=== PATIENT | male | born 1970 | race Caucasian/White ===

== ENCOUNTER 2019-11-26 10:08 | Emergency (ER) | payer BC ==
[2019-11-26] MEDS ORDERED: ONDANSETRON HCL INJ/PF 4 MG/2 ML SDV IV ONE (12:32)
--- NOTE | 2019-11-26 12:36 | ER Document Report ---
ED Medical Screen (RME) - General Chief Complaint: Dizziness Stated Complaint: NAUSEA,VOMITING/BLOOD SUGAR ISSUE Time Seen by Provider: 11/26/19 12:19 - HPI Notes: 11/26/19 12:32 49-year-old male with a history of 6 pack a day for over 30 years and smoking a pack and a half of cigarettes for over 30 years presents to the emergency room for evaluation of dizzy spells and vomiting that has been occurring for the last year however has become much worse over the last few days. Patient reports that he has had 4 episodes of vomiting today, abdominal pain around his umbilicus and shaking along with having dizzy spells. Patient states that he was seen a few months ago by his primary care provider for these issues, was placed on a PPI to help with his acid reflux, no endoscopy was done. Patient states that he has been getting progressively worse. Recently traveled from [place] for vacation at that time he was routinely checking his blood sugars because of his dizziness, vomiting, having the shakes, sluggish, his friend advised him to start checking his blood sugars. Reports that his highs were 139 his levels were 70s. Patient states when he started having the dizziness and the vomiting cold sweats sluggishness yesterday, he had a large breakfast which she then checked his blood sugar and it was only in the 80s. Patient states he has not had any alcohol in the last 5 years due to his issue with drinking. Patient reports he has had intermittent chest pain over the last couple of months as well as having some shortness of breath, chest pain is now brought him to the emergency room but his dizziness, sluggishness, abdominal pain, vomiting cold sweats and overall feeling of being ill as well prior to the emergency room today I have greeted and performed a rapid initial assessment of this patient. A c omprehensive ED assessment and evaluation of the patient, analysis of test results and completion of the medical decision making process will be conducted by additional ED providers. PHYSICAL EXAMINATION: GENERAL: Acutely ill, well-nourished and in no acute distress. CV: s1, s2 regular LUNGS: Diminished breath sounds in upper lobes Musculoskeletal: Normal range of motion. Bilateral hands noted clubbing Abdomen: Palpated tenderness around umbilicus, no CVA tenderness appreciated NEUROLOGICAL: Normal speech, normal gait. SKIN: Warm, Dry, normal turgor, no rashes or lesions noted. - Related Data Allergies/Adverse Reactions: Penicillins Allergy (Verified 11/26/19 12:18) Past Medical History - Social History Frequency of alcohol use: daily Drug Abuse: None GI Medical History: Reports: Hx Gastroesophageal Reflux Disease Skin Medical History: Denies Hx Eczema, Denies Hx MRSA - Immunizations Hx Diphtheria, Pertussis, Tetanus Vaccination: No Physical Exam - Vital signs Vitals: Temp Pulse Resp BP Pulse Ox 98.6 F 98 16 136/82 H 97 11/26/19 10:41 11/26/19 10:41 11/26/19 10:41 11/26/19 10:41 11/26/19 10:41 Course - Vital Signs Vital signs: Temp Pulse Resp BP Pulse Ox 98.6 F 98 16 136/82 H 97 11/26/19 12:19 11/26/19 10:41 11/26/19 10:41 11/26/19 10:41 11/26/19 10:41
--- NOTE | 2019-11-26 12:57 | RADIOLOGY REPORT (SQ) ---
EXAM DESCRIPTION: CHEST 2 VIEWS IMAGES COMPLETED DATE/TIME: 11/26/2019 12:48 pm REASON FOR STUDY: cough, dizziness, vomiting COMPARISON: None. EXAM PARAMETERS: NUMBER OF VIEWS: two views TECHNIQUE: Digital Frontal and Lateral radiographic views of the chest acquired. RADIATION DOSE: NA LIMITATIONS: none FINDINGS: LUNGS AND PLEURA: No opacities, masses or pneumothorax. No pleural effusion. MEDIASTINUM AND HILAR STRUCTURES: No masses or contour abnormalities. HEART AND VASCULAR STRUCTURES: Heart normal size. No evidence for failure. BONES: No acute findings. HARDWARE: None in the chest. OTHER: No other significant finding. IMPRESSION: NO ACUTE RADIOGRAPHIC FINDING IN THE CHEST. TECHNICAL DOCUMENTATION: JOB ID: [id number] 2010 [employer]- All Rights Reserved Reading location - IP/workstation name: [email or web address]
[2019-11-26] MEDS ORDERED: NORMAL SALINE 1000 ML 1,000 ML IV ONE (13:33)
[2019-11-26 14:24] LABS: ABSOLUTE BASOPHILS # (AUTO) 0.1 10^3/uL (0.0-0.2); ABSOLUTE EOSINOPHILS # (AUTO) 0.1 10^3/uL (0.0-0.6); ABSOLUTE LYMPHOCYTES (AUTO) 1.8 10^3/uL (0.5-4.7); ABSOLUTE MONOCYTES (AUTO) 0.6 10^3/uL (0.1-1.4); ABSOLUTE NEUT (AUTO) 4.5 10^3/uL (1.7-8.2); APPEARANCE,URINE CLEAR; BASOPHILS % (AUTO) 1.1 % (0-2); BILIRUBIN,URINE NEGATIVE (NEGATIVE); COLOR,URINE YELLOW; EOSINOPHILS % (AUTO) 1.2 % (0-6); GLUCOSE, URINE NEGATIVE (NEGATIVE); HEMATOCRIT 43.7 % (37.9-51.0); HEMOGLOBIN 15.4 g/dL (13.5-17.0); KETONES,URINE NEGATIVE (NEGATIVE); LEUKOCYTE ESTERASE,URINE NEGATIVE (NEGATIVE); LYMPHOCYTES % (AUTO) 25.1 % (13-45); MEAN CORPUSCULAR HEMOGLOBIN 33.4 pg (27.0-33.4); MEAN CORPUSCULAR HGB CONC 35.2 g/dL (32.0-36.0); MEAN CORPUSCULAR VOLUME 95 fl (80-97); MONOCYTES % (AUTO) 8.6 % (3-13); NITRITE,URINE NEGATIVE (NEGATIVE); PLATELET COUNT 202 10^3/uL (150-450); PROTEIN,URINE NEGATIVE (NEGATIVE); RED CELL DISTRIBUTION WIDTH 14.7 % (11.5-14.0); TOTAL CELLS COUNTED % (AUTO) 100 %; URINE SPECIFIC GRAVITY 1.013; UROBILINOGEN,URINE NEGATIVE mg/dL (<2.0)
[2019-11-26 14:42] LABS: ALBUMIN 4.9 g/dL (3.5-5.0); ALKALINE PHOSPHATASE 71 U/L (38-126); ANION GAP 10 (5-19); ASPARTATE AMINO TRANSFERASE 30 U/L (17-59); BILIRUBIN,DIRECT 0.3 mg/dL (0.0-0.4); BILIRUBIN,TOTAL 0.4 mg/dL (0.2-1.3); BLOOD UREA NITROGEN 10 mg/dL (7-20); CALCIUM 9.2 mg/dL (8.4-10.2); CARBON DIOXIDE 26 mmol/L (22-30); CHLORIDE 103 mmol/L (98-107); GLUCOSE 84 mg/dL (75-110); POTASSIUM 4.1 mmol/L (3.6-5.0); TOTAL PROTEIN 9.7 g/dL (6.3-8.2)
--- NOTE | 2019-11-26 15:46 | RADIOLOGY REPORT (SQ) ---
EXAM DESCRIPTION: CT ABD/PELVIS WITH IV ONLY IMAGES COMPLETED DATE/TIME: 11/26/2019 3:33 pm REASON FOR STUDY: Periumbilical pain, vomiting,dizzy, hxofetoh+30yr COMPARISON: None. TECHNIQUE: CT scan of the abdomen and pelvis performed using helical scanning technique with dynamic intravenous contrast injection. No oral contrast. Images reviewed with lung, soft tissue, and bone windows. Reconstructed coronal and sagittal MPR images reviewed. Delayed images for evaluation of the urinary system also acquired. All images stored on PACS. All CT scanners at this facility use dose modulation, iterative reconstruction, and/or weight based d osing when appropriate to reduce radiation dose to as low as reasonably achievable (ALARA). [facility]: Dose Right [facility]: CareDose [facility]: Dose Right [facility]: Teradose 4D [facility]: [employer] CONTRAST TYPE AND DOSE: contrast/concentration: Isovue 350.00 mmol/ml; Total Contrast Delivered: 100 .0 ml; Total Saline Delivered: 72.0 ml RENAL FUNCTION: BUN 10 creatinine 0.68. RADIATION DOSE: CT Rad equipment meets quality standard of care and radiation dose reduction techniq ues were employed. CTDIvol: 7.0 - 9.7 mGy. DLP: 939 mGy-cm.. LIMITATIONS: None. FINDINGS: LOWER CHEST: No significant findings. No nodules or infiltrates. LIVER: Normal size. No masses. No dilated ducts. SPLEEN: Normal size. No focal lesions. PANCREAS: No masses. No significant calcifications. No adjacent inflammation or peripancreatic fluid collections. Pancreatic duct not dilated. GALLBLADDER: No identified stones by CT criteria. No inflammatory changes to suggest cholecystitis. ADRENAL GLANDS: No significant masses or asymmetry. RIGHT KIDNEY AND URETER: No solid masses. No significant calcifications. No hydronephrosis or hyd roureter. LEFT KIDNEY AND URETER: Cortical cyst. No solid masses. No significant calcifications. No hydron ephrosis or hydroureter. AORTA AND VESSELS: No aneurysm. No dissection. Renal arteries, SMA, celiac without stenosis. RETROPERITONEUM: No retroperitoneal adenopathy, hemorrhage or masses. BOWEL AND PERITONEAL CAVITY: No masses or inflammatory changes. No free fluid or peritoneal masses. APPENDIX: Normal. PELVIS: No mass. No free fluid. Normal bladder. ABDOMINAL WALL: No masses. No hernias. BONES: No significant or acute findings. OTHER: No other significant finding. IMPRESSION: NO SIGNIFICANT OR ACUTE FINDING IN THE ABDOMEN OR PELVIS ON CT SCAN WITH IV CONTRAST. I NCIDENTAL CORTICAL CYST IN THE LEFT KIDNEY. TECHNICAL DOCUMENTATION: JOB ID: [id number] Quality ID # [id number]: Final reports with documentation of one or more dose reduction techniques (e.g., Au tomated exposure control, adjustment of the mA and/or kV according to patient size, use of iterative reconstruction technique) 2010 [employer]- All Rights Reserved Reading location - IP/workstation name: [email or web address]
[2019-11-26 16:04] VITALS: BP 135/79
--- NOTE | 2019-11-26 16:23 | ER Document Report ---
ED Dizziness/Weakness - General Chief Complaint: Dizziness Stated Complaint: NAUSEA,VOMITING/BLOOD SUGAR ISSUE Time Seen by Provider: 11/26/19 12:19 Primary Care Provider: NORM POSADAS PA-C [Primary Care Provider] - Follow up as needed Mode of Arrival: Ambulatory Information source: Patient - HPI Notes: Patient comes to be seen with an episode today where he became "clammy" and had some abdominal crampy pain. He states he also gets nauseous when he has episodes. He states he has had several these episodes over the last couple of months and feels that it may be his blood sugar. He states that he is taken his blood sugars at home and they range between 70 and 140. He also states that he drinks 6 beers per day and several shots of hard liquor per day. He also states that he occasionally smokes marijuana. He states that he feels the alcohol use may also be making him feel weak. He states that he has a generalized weakness and lack of energy over the last several months. He states that this lasts most of each day. Nothing makes it better or worse. However when he exerts himself he does feel even weaker. Patient states that the sensation is fairly constant radiates throughout his body. - Related Data Allergies/Adverse Reactions: Penicillins Allergy (Verified 11/26/19 12:18) Past Medical History - General Information source: Patient - Social History Smoking Status: Current Every Day Smoker Frequency of alcohol use: daily Drug Abuse: None Family History: Reviewed & Not Pertinent Patient has homicidal ideation: No GI Medical History: Reports: Hx Gastroesophageal Reflux Disease Skin Medical History: Denies Hx Eczema, Denies Hx MRSA - Immunizations Hx Diphtheria, Pertussis, Tetanus Vaccination: No Review of Systems - Review of Systems Constitutional: denies: Chills, Fever Cardiovascular: Dizziness. denies: Palpitations Respiratory: denies: Cough, Short of breath -: Yes All other systems reviewed and negative Physical Exam - Vital signs Vitals: Temp Pulse Resp BP Pulse Ox 98.6 F 98 16 136/82 H 97 11/26/19 10:41 11/26/19 10:41 11/26/19 10:41 11/26/19 10:41 11/26/19 10:41 Interpretation: Normal - General General appearance: Appears well, Alert - HEENT Head: Normocephalic, Atraumatic Eyes: Normal Pupils: PERRL - Respiratory Respiratory status: No respiratory distress Chest status: Nontender Breath sounds: Normal Chest palpation: Normal - Cardiovascular Rhythm: Regular Heart sounds: Normal auscultation Murmur: No - Abdominal Inspection: Normal Distension: No distension Bowel sounds: Normal Tenderness: Nontender Organomegaly: No organomegaly - Back Back: Normal, Nontender - Extremities General upper extremity: Normal inspection, Nontender, Normal color, Normal ROM, Normal temperature General lower extremity: Normal inspection, Nontender, Normal color, Normal ROM, Normal temperature, Normal weight bearing. No: Sunday's sign - Neurological Neuro grossly intact: Yes Cognition: Normal Orientation: AAOx4 Pili Coma Scale Eye Opening: Spontaneous [place] Coma Scale Verbal: Oriented [place] Coma Scale Motor: Obeys Commands Pili Coma Scale Total: 15 Speech: Normal Motor strength normal: LUE, RUE, LLE, RLE Sensory: Normal - Psychological Associated symptoms: Normal affect, Normal mood - Skin Skin Temperature: Warm Skin Moisture: Dry Skin Color: Normal Course - Re-evaluation Re-evalutation: 11/26/19 16:20 Patient complains of generalized weakness and "feeling bad". However he admits to significant daily alcohol use. I believe most of patient's symptoms is due to his chronic alcoholism and have educated him about this and the need to follow-up with some type of outpatient alcohol cessation counseling. - Vital Signs Vital signs: Temp Pulse Resp BP Pulse Ox 98.6 F 83 11 L 135/79 H 95 11/26/19 12:19 11/26/19 14:52 11/26/19 15:01 11/26/19 15:00 11/26/19 15:01 - Laboratory Result Diagrams: 11/26/19 13:57 11/26/19 13:57 Laboratory results interpreted by me: 11/26/19 11/26/19 11/26/19 13:57 13:57 13:57 RDW 14.7 H Total Protein 9.7 H Urine Ascorbic Acid 20 H - Diagnostic Test Radiology reviewed: Image reviewed, Reports reviewed - EKG Interpretation by Dc EKG shows normal: Sinus rhythm Rate: Normal - 81 Rhythm: NSR Treece/QRS: No: Right axis deviation, Left axis deviation Discharge - Discharge Clinical Impression: Alcohol abuse Condition: Stable Disposition: HOME, SELF-CARE Instructions: Alcohol Withdrawl ([facility]), Chronic Alcoholism ([facility]) Additional Instructions: Please seek for your alcohol use as soon as possible. [facility] is a great place to get help Prescriptions: Chlordiazepoxide HCl 25 mg PO Q6 7 Days #28 capsule Forms: Return to Work Referrals: [facility] [Provider Group] - Follow up in 3-5 days [facility] [Outside] - 11/26/19 5:00 pm
--- NOTE | 2019-11-26 18:38 | EKG REPORT ---
SEVERITY:- ABNORMAL ECG - SINUS RHYTHM PROBABLE LEFT ATRIAL ABNORMALITY BORDERLINE INFERIOR Q WAVES CONSIDER ANTERIOR INFARCT MINIMAL ST DEPRESSION, INFERIOR LEADS : Confirmed by: Anjum Musa MD 26-Nov-2019 18:38:08
== END 2019-11-26 17:08 | disposition home or self-care (01) ==
LOC: ER 10:08
DX: F10.10 Alcohol abuse, uncomplicated (principal); R42 Dizziness and giddiness; R11.2 Nausea with vomiting, unspecified; R10.9 Unspecified abdominal pain; F17.200 Nicotine dependence, unspecified, uncomplicated; Z88.0 Allergy status to penicillin
CPT/HCPCS: 93005; 99285; 96361; 96374; 36415; 83690; 83735; 85025; 80053; 81001; 84484; 71046; 74177; 93010; J2405; J7030